=== PATIENT | male | born 1970 | race Caucasian/White ===

== ENCOUNTER 2018-09-20 15:50 | Emergency (ER) | payer SELFPAY ==
[2018-09-20] MEDS: 0.9 % SODIUM CHLORIDE 1,000 ML IV ONE ×2 (16:10→17:10)
[2018-09-20 16:14] LABS: MEAN CORPUSCULAR HEMOGLOBIN 30.8 pg (28.0-34.0)
[2018-09-20 16:15] LABS: BASOPHILS % 0.6 (0.0-1.5); EOSINOPHILS % 3.5 % (0.0-6.8); MONOCYTES % 3.9 % (0.0-11.0)
[2018-09-20 16:27] LABS: eGFR (Non-African) > 60
[2018-09-20 17:52] VITALS: BP 159/93
[2018-09-20 17:56] LABS: CANNABINOIDS NON NEGATIVE ng/mL (< 50)
[2018-09-20 17:57] LABS: METHYLENEDIOXYMETHAMPHETAMINE NEGATIVE ng/mL (<500)
--- NOTE | 2018-10-15 22:23 | ED Physician Documentation ---
General Adult - HISTORIAN Historian: patient - HPI Stated Complaint: Fit for confinement Chief Complaint: General Adult Further Comments: yes (48 year old male patient brought in from EMS with PD for fit for confinement.) - ROS CONST: denies: no problems EYES/ENT: none CVS/RESP: none GI/: none MS/SKIN/LYMPH: none NEURO/PSYCH: denies: headache - PAST HX Past History: none Allergies/Adverse Reactions: Allergies Allergy/AdvReac Type Severity Reaction Status Date / Time No Known Allergies Allergy Verified 09/20/18 16:50 Home Medications: Ambulatory Orders Medication Instructions Recorded NK 09/20/18 - SOCIAL HX Smoking History: cigarettes Drug Use: methamphetamines - FAMILY HX Family History: No - VITAL SIGNS Vital Signs: Vital Signs Temp Pulse Resp BP Pulse Ox 59 L 12 159/93 95 09/20/18 17:49 09/20/18 17:49 09/20/18 17:49 09/20/18 17:49 - REVIEWED ASSESSMENTS Nursing Assessment Reviewed: Yes Vitals Reviewed: Yes Progress - Progress Progress: Patient awake and alert after 2L of NS - vital signs stable. ED Results Lab/Radiology - Lab Results Lab Results: Lab Results 09/20/18 09/20/18 09/20/18 17:29 17:29 16:04 WBC RBC Hgb Hct MCV MCH MCHC RDW Plt Count Neut % (Auto) Lymph % (Auto) Lyman % (Auto) Eos % (Auto) Baso % (Auto) Neut # (Auto) Lymph # (Auto) Lyman # (Auto) Eos # (Auto) Baso # (Auto) Sodium Potassium Chloride Carbon Dioxide BUN Creatinine Est GFR ( Amer) Est GFR (Non-Af Amer) Glucose Calcium Total Bilirubin AST ALT Alkaline Phosphatase Troponin I Total Protein Albumin Opiates Screen Negative ng/mL ng/mL (<300) Oxycodone Screen Negative ng/mL ng/mL (<100) Methadone Screen Negative ng/mL ng/mL (<200) Ur Barbiturates Screen Negative ng.mL ng.mL (<200) Tricyclic Antidepress Negative ng/mL ng/mL (<300) Phencyclidine Screen Negative ng/mL ng/mL (< 25) Amphetamines Screen Non negative ng/mL H ng/mL (<500) U Methamphetamines Scrn Non negative ng/mL H ng/mL (<500) MDMA Negative ng/mL ng/mL (<500) Benzodiazepines Screen Negative ng/mL ng/mL (<150) Urine Cocaine Screen Negative ng/mL ng/mL (<150) Cannabinoids Confirm See scanned report ng/mL ng/mL U Cannabinoids Screen Non negative ng/mL H ng/mL (< 50) Ethyl Alcohol < 10.0 mg/dL mg/dL (0.0-10.0) 09/20/18 09/20/18 09/20/18 16:03 16:03 16:03 WBC 6.60 K/ul K/ul (4.00-12.00) RBC 4.35 M/ul M/ul (3.90-5.20) Hgb 13.4 g/dL g/dL (12.0-18.0) Hct 39.7 % % (37.0-53.0) MCV 91.0 fl fl (80.0-100.0) MCH 30.8 pg pg (28.0-34.0) MCHC 33.8 g/dL g/dL (30.0-36.0) RDW 12.6 % % (11.3-14.3) Plt Count 244 K/mm3 K/mm3 (130-400) Neut % (Auto) 45.8 % % (39.0-79.0) Lymph % (Auto) 46.2 % % (16.0-50.0) Lyman % (Auto) 3.9 % % (0.0-11.0) Eos % (Auto) 3.5 % % (0.0-6.8) Baso % (Auto) 0.6 (0.0-1.5) Neut # (Auto) 3.0 # k/uL # k/uL (1.4-7.7) Lymph # (Auto) 3.0 # k/uL # k/uL (0.6-4.0) Lyman # (Auto) 0.3 # k/uL # k/uL (0.0-0.9) Eos # (Auto) 0.2 # k/uL # k/uL (0.0-0.6) Baso # (Auto) 0.0 # k/uL # k/uL (0.0-0.5) Sodium 140 mmol/L mmol/L (136-145) Potassium 4.3 mmol/L mmol/L (3.5-5.1) Chloride 103 mmol/L mmol/L (98-107) Carbon Dioxide 26 mmol/L mmol/L (22-30) BUN 14 mg/dL mg/dL (9-20) Creatinine 0.81 mg/dL mg/dL (0.66-1.25) Est GFR ( Amer) > 60 (60 - ) Est GFR (Non-Af Amer) > 60 (60 - ) Glucose 92 mg/dL mg/dL (74-106) Calcium 9.0 mg/dL mg/dL (8.4-10.2) Total Bilirubin 0.5 mg/dL mg/dL (0.2-1.3) AST 36 U/L U/L (15-46) ALT 20 U/L U/L (13-69) Alkaline Phosphatase 63 U/L U/L (38-126) Troponin I < 0.03 ng/mL L ng/mL (0.03-0.06) Total Protein 6.8 g/dL g/dL (6.3-8.2) Albumin 4.3 g/dL g/dL (3.5-5.0) Opiates Screen Oxycodone Screen Methadone Screen Ur Barbiturates Screen Tricyclic Antidepress Phencyclidine Screen Amphetamines Screen U Methamphetamines Scrn MDMA Benzodiazepines Screen Urine Cocaine Screen Cannabinoids Confirm U Cannabinoids Screen Ethyl Alcohol - Orders Orders: ED Orders Category Date Time Status In & Out Cath [Intermittent urinary catheteri] 1T Care 09/20/18 17:[address] IV Lock 1T Care 09/20/18 16:03 Active ALCOHOL MEDICAL USE ONLY Stat Lab 09/20/18 16:04 Completed AMPHETAMINES,QUANT,URINE Stat Lab 09/20/18 17:29 Completed CBC/PLATELET/DIFF Stat Lab 09/20/18 16:03 Completed CMP Stat Lab 09/20/18 16:03 Completed TROPONIN I (cTnI) Stat Lab 09/20/18 16:03 Completed Urine drug screen [DRUG SCREEN URINE MEDICAL ONLY] Stat Lab 09/20/18 17:29 Completed 0.9 % Sodium Chloride [Normal Saline] 1,000 ml Med 09/20/18 16:03 Discontinued IV NOW 0.9 % Sodium Chloride [Normal Saline] 1,000 ml Med 09/20/18 16:46 Discontinued IV NOW General Adult Physical Exam - PHYSICAL EXAM GENERAL APPEARANCE: mild distress EENT: eye inspection normal, MARY ANN RESPIRATORY: no resp distress, chest non-tender, breath sounds normal CVS: reg rate & rhythm, heart sounds normal, equal pulses, no murmur, no gallop, PMI nml, no JVD, no friction rub, 24 ABDOMEN: soft, no organomegaly, normal bowel sounds, no abdominal bruit, no distension SKIN: normal color, warm/dry, NR, INT, PAL, DR EXTREMITIES: non-tender, normal range of motion, no evidence of injury, no edema, J, [employer] [facility] NEURO: oriented X3, motor nml, sensation nml, mood/affect nml Discharge Clincal Impression: Polysubstance (excluding opioids) dependence, Fit for confinement Referrals: Serina Escalante FNP [Primary Care Provider] - 2 Days Condition: Stable Disposition: 01 HOME, SELF-CARE Decision to Admit: NO Decision Time: 17:40
== END 2018-09-20 17:49 | disposition home or self-care (01) ==
LOC: ED 15:50
DX: Z02.89 Encounter for other administrative examinations (principal); F19.20 Other psychoactive substance dependence, uncomplicated
CPT/HCPCS: 36415; 51701; 80053; 80320; 80377; 84484; 85025; 99282; 99283; G0480; G0481; J7030; S1016

== ENCOUNTER 2019-07-14 06:50 | Emergency (ER) | payer SELFPAY ==
--- NOTE | 2019-07-14 07:17 | ED Physician Documentation ---
General Adult - HISTORIAN Historian: patient - HPI Stated Complaint: chest pain and shaking Chief Complaint: General Adult Additional Information: 49 year old male presents from the fpc for questionable seizure activity (arms shaking- A&Ox4)- no evidence of seizure. He was seen at the [facility] and diagnosed with Costochondritis and had a full work up. He was in [facility]pc last week when seen at the [facility]; sounds like he has seeked medical attention several times in the last week. Patient is in no acute distress; chest wall pain is reproducible; shaking is more "shivering". Denies fever, nausea, vomiting. Last night he was going to get a coke and was pulled over by police and arrested. Onset: minutes Timing: better Severity: mild Modifying Factors: "fpc" - ROS CONST: recent illness (Has seeked medical attention multiple times in the last week while in fpc) EYES/ENT: none CVS/RESP: chest pain ("chest wall") GI/: none MS/SKIN/LYMPH: none - PAST HX Past History: none Other History: other (Drug abuse) Immunizations: UTD Allergies/Adverse Reactions: Allergies Allergy/AdvReac Type Severity Reaction Status Date / Time No Known Allergies Allergy Verified 07/14/19 07:06 Home Medications: Ambulatory Orders Medication Instructions Recorded NK 09/20/18 - SOCIAL HX Smoking History: greater than 1 pack/day Alcohol Use: occasionally Drug Use: marijuana, methamphetamines - FAMILY HX Family History: No - VITAL SIGNS Vital Signs: Vital Signs Temp Pulse Resp BP Pulse Ox 98.2 F 100 H 97 H 162/122 97 07/14/19 06:58 07/14/19 06:58 07/14/19 06:58 07/14/19 06:58 07/14/19 06:58 - REVIEWED ASSESSMENTS Nursing Assessment Reviewed: Yes Vitals Reviewed: Yes ED Results Lab/Radiology - Radiology Radiology Impressions: Chest, PA and lateral History: Chest pain, shortness of breath Finding: No infiltrate, effusion or pneumothorax is present. Heart size, mediastinum and pulmonary vascularity are normal. Impression: No active pulmonary disease. Electronically signed on Jul 14, 2019 7:29:28 AM AIR TECHNICIAN by: Angel Luis Bingham - Orders Orders: ED Orders Category Date Time Status CHEST 2VIEW [RAD] Stat Exams 07/14/19 Ordered CBC/PLATELET/DIFF Routine Lab 07/14/19 Ordered CMP Routine Lab 07/14/19 Ordered TROPONIN I Stat Lab 07/14/19 Ordered EKG WITH COMPARISON Stat Ther 07/14/19 Ordered General Adult Physical Exam - PHYSICAL EXAM GENERAL APPEARANCE: mild distress EENT: eye inspection normal, ENT inspection normal, pharynx normal, no signs of dehydration, MARY ANN NECK: normal inspection RESPIRATORY: breath sounds normal, other (Chest wall tender) CVS: heart sounds normal, equal pulses, tachycardia ABDOMEN: soft, no organomegaly, normal bowel sounds SKIN: warm/dry, normal color EXTREMITIES: normal range of motion NEURO: oriented X3, motor nml, sensation nml, cognition normal Discharge Clincal Impression: Costochondral chest pain Referrals: Serina Escaalnte FNP [Primary Care Provider] - 2 Days Additional Instructions: May use heating pads to chest May use Ibuprofen 600mg by mouth every 6 hours as needed for chest discomfort Increase fluid intake > 64oz water Follow up with PCP next week Condition: Good Disposition: 01 HOME, SELF-CARE Decision to Admit: NO Decision Time: 07:58 (Care Home)
--- NOTE | 2019-07-14 07:34 | Diagnostic Imaging Report ---
PATIENT MR#: [id number] PATIENT PATIENT NAME: THUAN SAUCEDO DATE OF : 1970 REFERRING PHYSICIAN: Holli Rodas EXAM DATE: 07/14/2019 ACCESSION NUMBER: [id number] EXAM DESCRIPTION: CHEST 2VIEW Chest, PA and lateral History: Chest pain, shortness of breath Finding: No infiltrate, effusion or pneumothorax is present. Heart size, mediastinum and pulmonary va scularity are normal. Impression: No active pulmonary disease. Read by: Dr. Angel Luis Bingham Transcribed by: Transcribed Date: Electronically signed by: Dr. Angel Luis Bingham Date signed: 07/14/2019 7:33:51 AM
[2019-07-14 07:41] LABS: eGFR (Non-African) > 60
[2019-07-14 07:52] LABS: BASOPHILS % 0.4 % (0.0-1.5); NEUTROPHILS # 9.2 # k/uL (1.4-7.7); SEGMENTED NEUTROPHILS % 77 % (39-79)
[2019-07-14 08:08] VITALS: BP 138/85
== END 2019-07-14 08:09 | disposition home or self-care (01) ==
LOC: ED 06:50
DX: R07.89 Other chest pain (principal)
CPT/HCPCS: 71046; 80053; 84484; 85025; 93005; S1016